=== PATIENT | female | born 1960 | race Caucasian/White ===

== ENCOUNTER 2022-01-24 20:02 | Emergency (ER) | payer MEDICARE ==
[2022-01-24] MEDS ORDERED: CEPHALEXIN500 MG PO (21:18)
== END 2022-01-24 21:35 | disposition home or self-care (01) ==
LOC: FER 20:02
DX: H66.92 Otitis media, unspecified, left ear (principal); E11.9 Type 2 diabetes mellitus without complications; I10 Essential (primary) hypertension; Z88.0 Allergy status to penicillin; Z79.4 Long term (current) use of insulin; Z79.84 Long term (current) use of oral hypoglycemic drugs; Z79.82 Long term (current) use of aspirin; Z79.899 Other long term (current) drug therapy
CPT/HCPCS: 99282